=== PATIENT | female | born 1975 | race Caucasian/White ===

== ENCOUNTER → 2017-07-31 | Outpatient (CLI) | payer BC ==
[~2017-07-31] MED LIST: BCP
--- NOTE | 2017-07-31 09:38 | Diagnostic Imaging Report ---
PROCEDURE: US Thyroid. TECHNIQUE: Multiple Real-time grayscale images were obtained of the thyroid in various projections. INDICATION: Thyromegaly. FINDINGS: The right lobe measures 4.4 x 1.5 x 1.7 cm and the left lobe is 4.7 x 1.5 x 1.6 cm. Color Doppler blood flow to both lobes may be mildly elevated but not convincingly hypervascular. There is diffuse heterogeneity of the thyroidal parenchyma on the left and right. There is an 8 mm ovoid hypoechoic nodule well-defined in the right lobe upper pole. There is no suspicious mass. IMPRESSION: There is a subcentimeter 8 mm right lobe nodule circumscribed and well-defined. The thyroidal parenchyma is diffusely heterogeneous with borderline slight elevated color flow. No dominant or suspicious appearing mass. Dictated by: Dictated on workstation # [id number]
== END ==
LOC: RAD 08:15
PROVIDERS: ATTEND Nurse Practitioner Family
DX: E04.1 Nontoxic single thyroid nodule (principal)
CPT/HCPCS: 76536

== ENCOUNTER → 2017-11-29 | Outpatient (CLI) | payer BC ==
--- NOTE | 2017-11-29 12:04 | Diagnostic Imaging Report ---
PROCEDURE: US Thyroid. TECHNIQUE: Multiple real-time grayscale images were obtained of the thyroid in various projections. INDICATION: Thyroid nodule. COMPARISON: Comparison is made with prior thyroid ultrasound from 07/31/2017. FINDINGS: Right lobe of the thyroid measures 4.6 x 1.7 x 1.8 cm and the left lobe measures 4.5 x 1.5 x 1.7 cm. Both lobes are heterogeneous. The right lobe does contain a well-defined hypoechoic nodule in the upper pole measuring 7 mm x 4 mm x 7 mm, stable when compared with prior study. No new mass is detected. IMPRESSION: Stable right lobe thyroid nodule when compared with exam from 07/31/2017. Dictated by: Dictated on workstation # [id number]
== END ==
LOC: RAD 10:52
PROVIDERS: ATTEND Nurse Practitioner Family
DX: E04.1 Nontoxic single thyroid nodule (principal)
CPT/HCPCS: 76536

== ENCOUNTER → 2021-08-18 | Outpatient (CLI) | payer BC ==
--- NOTE | 2021-08-18 14:24 | Diagnostic Imaging Report ---
INDICATION: Routine screening. No prior mammograms are available for comparison. This a baseline study. 2-D and 3-D bilateral screening mammography was performed with CAD. Both breasts are heterogeneously dense, limiting the sensitivity of mammography. No mass or malignant-appearing microcalcifications are seen. Axillae are unremarkable. IMPRESSION: BI-RADS Category 1 No mammographic features suspicious for malignancy are identified. ACR BI-RADS Category 1: Negative. Result letter will be mailed to the patient. Note: At least 10% of breast cancer is not imaged by mammography. Dictated by: Dictated on workstation # [id number]
== END ==
LOC: RAD 07:52
PROVIDERS: ATTEND Nurse Practitioner Family
DX: Z12.31 Encounter for screening mammogram for malignant neoplasm of breast (principal)
CPT/HCPCS: 77063; 77067

== ENCOUNTER → 2022-12-21 | Outpatient (CLI) | payer BC ==
--- NOTE | 2022-12-21 09:32 | Diagnostic Imaging Report ---
3D bilateral screening mammogram. The current study was also evaluated with a Computed Aided Detection (CAD) system. COMPARISON: This study was compared to the prior exam of 08/18/2021. There are no current complaints. FINDINGS: The fibroglandular tissue in both breasts is heterogeneously dense. This does limit the sensitivity of this exam. When compared to the previous study there does not appear to have been any significant change. There is no primary or secondary sign of malignancy noted. IMPRESSION: 1. There is no evidence for malignancy. BI-RADS ACR CATEGORY: 1 NEGATIVE ACR BI-RADS Category 1: Negative. Result letter will be mailed to the patient. Note: At least 10% of breast cancer is not imaged by mammography. Dictated by: Dictated on workstation # [id number]
== END ==
LOC: RAD 07:20
PROVIDERS: ATTEND Nurse Practitioner Family
DX: Z12.31 Encounter for screening mammogram for malignant neoplasm of breast (principal)
CPT/HCPCS: 77063; 77067